=== PATIENT | male | born 1980 | race Caucasian/White ===

== ENCOUNTER 2018-11-10 00:36 | Emergency (ER) | payer OTHER ==
[~2018-11-10] VITALS: Ht 167.6 cm; Wt 89.4 kg
[2018-11-10 00:52] VITALS: BP 131/76; Ht 167.6 cm; Wt 89.4 kg
== END 2018-11-10 02:19 | disposition home or self-care (01) ==
LOC: ED 00:36
DX: S05.01XA Injury of conjunctiva and corneal abrasion without foreign body, right eye, initial encounter (principal); H10.213 Acute toxic conjunctivitis, bilateral; X58.XXXA Exposure to other specified factors, initial encounter; Y93.89 Activity, other specified; Y92.89 Other specified places as the place of occurrence of the external cause; Y99.8 Other external cause status

== ENCOUNTER 2020-07-13 10:20 | Emergency (ER) | payer OTHER ==
[~2020-07-13] VITALS: Ht 167.6 cm; Wt 93.0 kg
[2020-07-13 10:27] VITALS: Ht 167.6 cm; Wt 93.0 kg
[2020-07-13 11:08] LABS: BASOPHIL % 0.4 % (0-2); CARBON DIOXIDE 28.4 mmol/L (21-32); CHLORIDE SERUM 104 mmol/L (98-107); GFR1 > 60 mL/min; GLUCOSE SERUM 144 mg/dL (74-106); PLATELET COUNT 255 x10^3mcL (130-400); POTASSIUM SERUM 3.7 mmol/L (3.5-5.1); RED CELL DISTRIBUTION WIDTH 12.8 % (11.5-14.5); SODIUM SERUM 139 mmol/L (136-145)
[2020-07-13 11:13] LABS: ALKALINE PHOSPHATASE 67 U/L (46-116); ALT/SGPT 93 U/L (16-63); AST/SGOT 42 U/L (15-37); BILIRUBIN TOTAL 0.46 mg/dL (0.20-1.00); TOTAL PROTEIN, SERUM 7.6 g/dL (6.4-8.2)
[2020-07-13 12:47] VITALS: BP 122/71
== END 2020-07-13 12:47 | disposition home or self-care (01) ==
LOC: ED 10:20
PROVIDERS: Emergency Medicine
DX: R42 Dizziness and giddiness (principal); R11.2 Nausea with vomiting, unspecified
CPT/HCPCS: J2405; J7030